=== PATIENT | female | born 1985 | race Native Hawaiian/Other Pacific Islander ===

== ENCOUNTER 2018-07-31 16:25 | Outpatient (CLI) | payer BC | END 2018-07-31 20:17 | disposition home or self-care (01) | LOC: LABW 16:25 | DX: Z32.01 Encounter for pregnancy test, result positive (principal) | CPT/HCPCS: 36415; 84702 ==

== ENCOUNTER 2022-09-17 23:58 | Emergency (ER) | payer OTHER ==
[~2022-09-17] VITALS: Ht 165.1 cm; Wt 130.2 kg
[2022-09-18 00:09] VITALS: BP 115/67; TEMP 98.3
[2022-09-18 01:27] LABS: PLATELET COUNT 314 K/uL (152-353)
== END 2022-09-18 02:56 | disposition short-term general hospital (02) ==
LOC: ED 23:58
PROVIDERS: Emergency Medicine Emergency Medical Services
DX: O20.0 Threatened abortion (principal); R10.84 Generalized abdominal pain; O23.41 Unspecified infection of urinary tract in pregnancy, first trimester; N39.0 Urinary tract infection, site not specified; Z3A.01 Less than 8 weeks gestation of pregnancy
CPT/HCPCS: 36415; 81000; 81025; 85027; 96360; 96374; 99284; J2405